=== PATIENT | female | born 1985 | race African-American/Black ===

== ENCOUNTER 2016-07-31 23:51 | Emergency (ER) | payer SELFPAY ==
[2016-08-01 00:06] VITALS: BP 115/64
[2016-08-01] MEDS ORDERED: SULFAMETHOXAZOLE/TRIMETHOPRIM 1 EACH TABLET PO ONE (00:17)
[2016-08-01] MEDS ORDERED: CLINDAMYCIN HCL 150 MG CAPSULE PO ONE (00:18)
--- NOTE | 2016-08-01 00:33 | ED Physician Documentation ---
Abscess - HISTORIAN Historian: patient, other (SO) - HPI Stated Complaint: boil on rt tera/back Chief Complaint: General Adult Additional Information: 2-3 days sore area right flamk. Wants it incised. Has been using warm compresses. - ROS CONST: none. denies: fever CVS/RESP: none EYES/ENT: none GI/: none MS/SKIN/LYMPH: none NEURO/PSYCH: none - PAST HX Past History: other (staph infectoins/abscesses) Allergies/Adverse Reactions: Allergies Allergy/AdvReac Type Severity Reaction Status Date / Time Penicillins Allergy Severe Hives Verified 08/11/16 18:07 Sulfa (Sulfonamide Allergy Intermediate Hives Verified 08/11/16 18:07 Antibiotics) [Sulfa(Sulfonamide Antibiotics)] amoxicillin AdvReac Hives Verified 08/11/16 18:07 Home Medications: Ambulatory Orders Medication Instructions Recorded Albuterol Sulfate [Proair HFA] 2 inh IH Q4H PRN #1 hfa.aer.ad 06/19/16 Albuterol Sulfate [Ventolin] 2.5 mg NEB Q4 PRN #60 ml 06/19/16 - SOCIAL HX Smoking History: cigarettes - FAMILY HX Family History: none - VITAL SIGNS Vital Signs: Vital Signs Temp Pulse Resp BP Pulse Ox 97.8 F 84 14 115/64 99 07/31/16 23:51 08/01/16 00:36 08/01/16 00:36 08/01/16 00:36 08/01/16 00:36 - REVIEWED ASSESSMENTS Nursing Assessment Reviewed: Yes Vitals Reviewed: Yes ED Results Lab/Radiology - Orders Orders: ED Orders Category Date Time Status Clindamycin HCl [Cleocin] Med 08/01/16 00:18 Discontinued 300 mg PO NOW ONE Sulfamethoxazole/Trimethoprim [Bactrim Ds] Med 08/01/16 00:17 Discontinued 2 each PO NOW ONE Abscess Physical Exam - EXAM General Appearance: no acute distress, alert Skin: warm,dry (except right flank with 1 cm tender red nodule in skin fold, right flank. No fluctuance, no drainage) Extremities: nml ROM (gait) EENT: eyes nml inspection, lips nml Neck: no swelling Respiratory: no resp distress Rectal: deferred Neuro/Psych: motor nml, sensation nml Discharge Clincal Impression: Cutaneous abscess Qualifiers: Site of cutaneous abscess: trunk Site of cutaneous abscess of trunk: back Qualified Code(s): L02.212 - Cutaneous abscess of back [any part, except buttock ] Referrals: Anton Gerardo MD [Primary Care Provider] - 2 Days Additional Instructions: Apply heat to the area several times a day for comfort and to promote healing. Use thorough hand washing. Take all the antibiotics as prescribed. Home Medications: Ambulatory Orders Albuterol Sulfate [Proair HFA] 2 inh IH Q4H PRN #1 hfa.aer.ad 06/19/16 Albuterol Sulfate [Ventolin] 2.5 mg NEB Q4 PRN #60 ml 06/19/16 Condition: Good Disposition: 01 HOME, SELF-CARE Decision to Admit: NO Decision Time: 00:40
== END 2016-08-01 00:26 ==
LOC: ED 23:51
DX: L02.222 Furuncle of back [any part, except buttock and flank] (principal)
CPT/HCPCS: 99282; 99283; A9270

== ENCOUNTER 2016-08-11 16:53 | Emergency (ER) | payer SELFPAY ==
--- NOTE | 2016-08-11 18:53 | ED Physician Documentation ---
Lower Extremity Problem - HISTORIAN Historian: patient - HPI Stated Complaint: left foot pain Chief Complaint: Lower Extremity Problem Location of Injury: L foot Timing: still present Recent Injury: No (injury 2 yrs ago fracture to foot, not sure where) Severity: moderate Quality: pain. denies: swelling Exacerbated By: walking, other (bearing weight) Relieved By: rest Further Comments: yes (Patient has been using warm compress and Ibuprofen/aleve without help) - ROS CONST: denies: fever - PAST HX Past History: other (COPD, asthm) PE Risk Factors: none Surgeries/Procedures: other (I&D cyst) Allergies/Adverse Reactions: Allergies Allergy/AdvReac Type Severity Reaction Status Date / Time Penicillins Allergy Severe Hives Verified 08/11/16 18:07 Sulfa (Sulfonamide Allergy Intermediate Hives Verified 08/11/16 18:07 Antibiotics) [Sulfa(Sulfonamide Antibiotics)] amoxicillin AdvReac Hives Verified 08/11/16 18:07 Home Medications: Ambulatory Orders Medication Instructions Recorded Albuterol Sulfate [Proair HFA] 2 inh IH Q4H PRN #1 hfa.aer.ad 06/19/16 Albuterol Sulfate [Ventolin] 2.5 mg NEB Q4 PRN #60 ml 06/19/16 - SOCIAL HX Smoking History: greater than 1 pack/day (1ppd) Alcohol Use: occasionally Drug Use: none - FAMILY HX Family History: no significant history - VITAL SIGNS Vital Signs: Vital Signs Temp Pulse Resp BP Pulse Ox 98.2 F 18 128/83 96 08/11/16 16:53 08/11/16 16:53 08/11/16 16:53 08/11/16 16:53 - REVIEWED ASSESSMENTS Nursing Assessment Reviewed: Yes Vitals Reviewed: Yes ED Results Lab/Radiology - Orders Orders: ED Orders Category Date Time Status FOOT 3 VIEWS OR MORE [RAD] Stat Exams 08/11/16 Taken Lower Extremity Problem - EXAM General Appearance: mild distress Hips: bilateral hip: non-tender, normal inspection, normal range of motion, no evidence of injury Knees: bilateral: non-tender, normal inspection, normal range of motion, no evidence of injury Ankle: bilateral: non-tender, normal inspection, normal range of motion, no evidence of injury Foot: right foot: non-tender, normal inspection, normal range of motion, left foot: pain, soft tissue tenderness (dorsum of foot.), bilateral foot: no evidence of injury, N/A: ecchymosis (none), limited range of motion (none) Neuro/Tendon: normal sensation, normal motor functions RESPIRATORY: no resp distress, chest non-tender, breath sounds normal. No: wheezes, rales, rhonchi CVS: reg rate & rhythm, heart sounds normal, equal pulses, no murmur, no gallop NEURO/PSYCH: oriented X3, mood/affect nml, cognition normal SKIN: warm/dry Discharge Clincal Impression: Foot pain, left Additional Instructions: Continue taking aleve, take 2 tablets with food twice a day with food. Try using a warm compress to the area. wear post op ortho shoe for comfort measures. Home Medications: Ambulatory Orders Albuterol Sulfate [Proair HFA] 2 inh IH Q4H PRN #1 hfa.aer.ad 06/19/16 Albuterol Sulfate [Ventolin] 2.5 mg NEB Q4 PRN #60 ml 06/19/16 Condition: Stable Disposition: 01 HOME, SELF-CARE Decision to Admit: NO Date of Decison to Admit: 08/11/16 Decision Time: 19:17
[2016-08-11 21:27] VITALS: BP 132/78
--- NOTE | 2016-08-12 00:08 | Diagnostic Imaging Report ---
Report Submission Date: Aug 11, 2016 7:18:22 PM RETAIL STORE ASSISTANT Patient ~ Study Name: ROMAN MAC ~ Date: Aug 11, 2016 7:03:54 PM RETAIL STORE ASSISTANT ~ Modality Type: CR Gender: F ~ Description: LOWER EXTREMITY : 81 ~ Institution: Physician: [facility] ~ ~ ~ ~ Left foot 3 views Clinical history: Left foot pain, history of fracture 3 years ago No visible fractures, dislocation or bone destruction. No periosteal reaction and no soft tissue calcifications. Impression: Normal left foot ~ Electronically signed on Aug 11, 2016 7:18:22 PM RETAIL STORE ASSISTANT by: Anton PETERSON
== END 2016-08-11 19:30 | disposition home or self-care (01) ==
LOC: ED 16:53
DX: M79.672 Pain in left foot (principal); F17.210 Nicotine dependence, cigarettes, uncomplicated
CPT/HCPCS: 73630; 99283

== ENCOUNTER 2016-09-27 18:24 | Emergency (ER) | payer SELFPAY ==
[2016-09-27 18:56] VITALS: BP 102/74
--- NOTE | 2016-09-27 19:16 | ED Physician Documentation ---
Lower Extremity Problem - HISTORIAN Historian: patient - HPI Stated Complaint: migraine, left foot swelling Chief Complaint: Lower Extremity Problem Additional Information: Chronic Left foot/ankle problem, has been seen by specialist in the past. has had therapy and still having tightness and stretching in the foot. she didn't go to work last night and is supposed to be at work tonight. she also states she has a "migraine" Location of Injury: L foot, L ankle Onset: other (years) Timing: still present Duration: intermittent episodes Recent Injury: No Severity: mild Quality: pain Exacerbated By: walking Relieved By: nothing Associated Symptoms: denies: chest pain, shortness of breath, rapid heart rate, fainting Further Comments: no - ROS CONST: no problems MS/SKIN/LYMPH: none CVS/RESP: none GI/: none EYES/ENT: none NERUO/PSYCH: headache - PAST HX Past History: chronic back pain PE Risk Factors: none Allergies/Adverse Reactions: Allergies Allergy/AdvReac Type Severity Reaction Status Date / Time Penicillins Allergy Severe Hives Verified 09/27/16 18:50 Sulfa (Sulfonamide Allergy Intermediate Hives Verified 09/27/16 18:50 Antibiotics) [Sulfa(Sulfonamide Antibiotics)] amoxicillin AdvReac Hives Verified 09/27/16 18:50 Home Medications: Ambulatory Orders Medication Instructions Recorded Albuterol Sulfate [Proair HFA] 2 inh IH Q4H PRN #1 hfa.aer.ad 06/19/16 Albuterol Sulfate [Ventolin] 2.5 mg NEB Q4 PRN #60 ml 06/19/16 - SOCIAL HX Smoking History: non-smoker Alcohol Use: none Drug Use: none - FAMILY HX Family History: none - VITAL SIGNS Vital Signs: Vital Signs Temp Pulse Resp BP Pulse Ox 98.1 F 77 20 102/74 99 09/27/16 18:51 09/27/16 18:51 09/27/16 18:51 09/27/16 18:51 09/27/16 18:51 - REVIEWED ASSESSMENTS Nursing Assessment Reviewed: Yes Vitals Reviewed: Yes Progress - Results/Orders Results/Orders: had a lengthy discussion, about her expectations for treatment of chronic foot problem, tonight in the ER. She states she just wants to know what is wrong with it. I explained that I do not have the ability to diagnose that tonight. She states that she needs a work excuse so she won't get in trouble at work. Lower Extremity Problem - EXAM General Appearance: no distress Hips: bilateral hip: non-tender, normal inspection Legs: bilateral: non-tender, normal inspection Knees: bilateral: non-tender, normal inspection Ankle: left: soft tissue tenderness Foot: left foot: soft tissue tenderness Neuro/Tendon: normal sensation, normal motor functions EENT: ENT inspection normal RESPIRATORY: no resp distress JOINT: joints nml VASCULAR: no vascular compromise, pulses full/equal NEURO/PSYCH: oriented X3, mood/affect nml, cognition normal SKIN: warm/dry, normal color Discharge Clincal Impression: Foot pain, left Migraine Qualifiers: Migraine type: unspecified Status migrainosus presence: without status migrainosus Intractability: not intractable Qualified Code(s): G43.909 - Migraine, unspecified, not intractable, without status migrainosus Home Medications: Ambulatory Orders Albuterol Sulfate [Proair HFA] 2 inh IH Q4H PRN #1 hfa.aer.ad 06/19/16 Albuterol Sulfate [Ventolin] 2.5 mg NEB Q4 PRN #60 ml 06/19/16 Condition: Good Disposition: 01 HOME, SELF-CARE Decision to Admit: NO Date of Decison to Admit: 09/27/16 Decision Time: 19:22
[2016-09-27] MEDS ORDERED: KETOROLAC TROMETHAMINE 60 MG/2 ML VIAL IM ONE (19:22)
[2016-09-27] MEDS ORDERED: methylPREDNISolone SOD SUCC 125 MG/2 ML VIAL IM ONE (19:23)
[2016-09-27] MEDS ORDERED: METOCLOPRAMIDE HCL 5 MG TABLET PO ONE (19:23)
== END 2016-09-27 19:40 | disposition home or self-care (01) ==
LOC: ED 18:24
DX: G43.909 Migraine, unspecified, not intractable, without status migrainosus (principal); M79.672 Pain in left foot
CPT/HCPCS: 99283; J1885; J2930

== ENCOUNTER 2016-12-01 03:10 | Emergency (ER) | payer SELFPAY ==
--- NOTE | 2016-12-01 04:43 | Diagnostic Imaging Report ---
JR DOWNS [facility] [address] [facility] [address] [place] [address]. [id number] Report Submission Date: Dec 01, 2016 4:33:46 AM CDT Patient Study Name: ROMAN MAC Date: Dec 01, 2016 3:57:43 AM CDT Modality Type: CR Gender: F Description: UPPER EXTREMITY : 81 Institution: [facility] Physician: JR DOWNS Right hand, 3 views History: And pain, injury Findings: The osseous, joint and soft tissue structures are normal. Impression: Normal. Electronically signed on Dec 01, 2016 4:33:46 AM CDT by: Cornelius PETERSON
--- NOTE | 2016-12-01 04:43 | Diagnostic Imaging Report ---
JR DOWNS [facility] [address] [facility] [address] [id number] Report Submission Date: Dec 01, 2016 4:32:38 AM CDT Patient Study Name: ROMAN MAC Date: Dec 01, 2016 3:51:12 AM CDT Modality Type: CR Gender: F Description: PELVIS : 81 Institution: [facility] Physician: JR DOWNS AP pelvis History: Pelvic pain Findings: There is no dislocation or abnormal bone destruction. Left superior pubic ramus fracture is present. Fracture is of indeterminate age. Impression: Left superior pubic ramus fracture. Electronically signed on Dec 01, 2016 4:32:38 AM CDT by: Cornelius PETERSON
--- NOTE | 2016-12-01 04:44 | Diagnostic Imaging Report ---
JR DOWNS [facility] [address] [facility] [address] [place] [address]. [id number] Report Submission Date: Dec 01, 2016 4:37:27 AM CDT Patient Study Name: ROMAN MAC Date: Dec 01, 2016 3:53:09 AM CDT Modality Type: CR Gender: F Description: PELVIS : 81 Institution: [facility] Physician: JR DOWNS Left hip, 2 views History: Injury, pain Findings: Left superior and inferior pubic rami fractures are present. There is calcified talus at the fracture site. There is no dislocation or abnormal bone destruction. There is no acute fracture. Impression: 1. Healing left superior and inferior pubic rami fractures. 2. No acute abnormality. Electronically signed on Dec 01, 2016 4:37:27 AM CDT by: Cornelius PETERSON
[2016-12-01] MEDS ORDERED: TRIPLE ANTIBIOTIC OINTMENT PAC 1 PACKET TOP PRN (05:19)
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
[2016-12-01] MEDS ORDERED: CLINDAMYCIN HCL 150 MG CAPSULE PO ONE ×2 (05:30→05:32)
[2016-12-01 06:28] VITALS: BP 109/77
[2016-12-01] MEDS ORDERED: DIPH,PERTUSS(ACELL),TET VAC/PF 0.5 ML DISP.SYRIN IM ONE (07:05)
[2016-12-01] MEDS ORDERED: ACETAMINOPHEN PO SCH (09:00)
[2016-12-01] MEDS ORDERED: HYDROCODONE PO SCH (09:00)
[2016-12-01] MEDS ORDERED: [UNRECOGNIZED DRUG - OTHER] PO SCH (09:00)
== END 2016-12-01 05:47 | disposition home or self-care (01) ==
LOC: ED 03:10
DX: S61.211A Laceration without foreign body of left index finger without damage to nail, initial encounter (principal); X58.XXXA Exposure to other specified factors, initial encounter; Y93.9 Activity, unspecified; Y99.9 Unspecified external cause status
CPT/HCPCS: 72170; 73130; 73502; 90715; A9270; 99283

== ENCOUNTER 2018-12-05 18:35 | Emergency (ER) | payer OTHER | END 2018-12-05 18:56 | disposition home or self-care (01) | LOC: ED 18:35 | DX: L02.01 Cutaneous abscess of face (principal) | CPT/HCPCS: 99282; 99283 ==